=== PATIENT | male | born 1965 | race Caucasian/White ===

== ENCOUNTER 2018-01-04 08:42 | Inpatient (IN) | payer MEDICARE, OTHER ==
[2018-01-04] MEDS: IPRATRPIUM/ALBUTEROL 0.5/2.5MG 3 ML NEBU. NEB ×4 (09:06→10:00)
[2018-01-04 09:09] LABS: ADD MAN DIFF? NO
[2018-01-04 09:11] LABS: BASO % 0 % (0-3); EOS # 0.1 x10^3/uL (0.0-0.7); EOS % 1 % (0-3); HEMOGLOBIN 13.2 g/dL (13.0-17.5); LYMPH # 1.3 x10^3/uL (1.0-4.8); LYMPH % 11 % (24-48); MEAN CORPUSCULAR HEMOGLOBIN 28 pg (25-35); MEAN CORPUSCULAR HGB CONC 32 g/dL (31-37); MEAN CORPUSCULAR VOLUME 89 fL (79-100); MONO # 1.2 x10^3/uL (0.0-1.1); MONO % 11 % (0-9); NEUT # 9.2 x10^3uL (1.8-7.7); NEUT % 78 % (31-73); PLATELET COUNT 311 x10^3/uL (140-400); RED BLOOD COUNT 4.74 x10^6/uL (4.30-5.70); RED CELL DISTRIBUTION WIDTH 17.9 % (11.5-14.5); WHITE BLOOD COUNT 11.9 x10^3/uL (4.0-11.0)
[2018-01-04 09:18] LABS: AMMONIA 38 mcmol/L (11-34)
[2018-01-04 09:19] LABS: BASE EXCESS ABG 15 mmol/L (-3-3); HCO3 ABG 49 mmol/L (21-28); PO2 ABG 84 mmHg (75-108); SAT O2 ABG 94 % (92-99)
[2018-01-04 09:23] LABS: PCO2 ABG 131 mmHg (35-46); PH ABG 7.19 (7.35-7.45)
[2018-01-04 09:25] LABS: LACTIC ACID 0.6 mmol/L (0.4-2.0)
[2018-01-04 09:29] LABS: BLOOD UREA NITROGEN 7 mg/dL (8-26); BUN/CREATININE RATIO 12 (6-20); CALCIUM 9.2 mg/dL (8.5-10.1); CHLORIDE 93 mmol/L (98-107); CREATININE 0.6 mg/dL (0.7-1.3); GFR 140.9; GLUCOSE 106 mg/dL (70-99); SODIUM 139 mmol/L (136-145)
[2018-01-04 09:32] LABS: CARBON DIOXIDE > 45 mmol/L (21-32)
[2018-01-04 09:34] LABS: ALBUMIN 3.3 g/dL (3.4-5.0); ALBUMIN/GLOBULIN RATIO 0.8 (1.0-1.7); ALK PHOS 93 U/L (46-116); ALT (SGPT) 24 U/L (16-63); AST (SGOT) 19 U/L (15-37); TOTAL BILIRUBIN 0.3 mg/dL (0.2-1.0); TOTAL PROTEIN 7.2 g/dL (6.4-8.2)
[2018-01-04 09:34] LABS: TROPONINI < 0.017 ng/mL (0.000-0.055)
[2018-01-04] MEDS: ETOMIDATE 20 MG/10 ML VIAL. IV ×2 (09:34)
[2018-01-04] MEDS: SUCCINYLCHOLINE 200 MG/10 ML VIAL. IV ×2 (09:35)
[2018-01-04] MEDS: IV NORMAL SALINE 1000ML BAG 1,000 ML IV ×4 (09:36→14:22)
[2018-01-04 09:38] LABS: NT-PRO BNP 1987 pg/mL (0-124)
[2018-01-04] MEDS: PROPOFOL 10 MG/ML (20ML) VIAL. IV ×2 (09:45)
[2018-01-04 09:50] LABS: BARBITURATES NEG (NEG); BENZODIAZEPINES NEG (NEG); CANNABINOIDS NEG (NEG); COCAINE NEG (NEG); METHADONE NEG (NEG); OPIATES NEG (NEG); PHENCYCLIDINE NEG (NEG)
[2018-01-04 09:52] LABS: AMPHETAMINE/METHAMPHETAMINE NEG (NEG); ETHANOL, URINE NEG (NEG)
[2018-01-04] MEDS ORDERED: PROPOFOL 50 ML IV ×2 (09:54)
[2018-01-04 09:57] LABS: BILIRUBIN,URINE NEGATIVE (NEG); CLARITY,URINE CLEAR; COLOR,URINE YELLOW; GLUCOSE,URINE NEGATIVE (NEG); NITRITE,URINE NEGATIVE (NEG); PROTEIN,URINE NEGATIVE (NEG-TRACE); UROBILINOGEN,URINE 0.2 mg/dL (0.2 mg/dL)
[2018-01-04 09:58] LABS: BACTERIA,URINE 0 /HPF (0-FEW); RBC,URINE OCC /HPF (0-2)
[2018-01-04 09:59] LABS: WBC,URINE 0 /HPF (0-4)
[2018-01-04] MEDS: ALBUTEROL SULFATE 2.5 MG/3 ML NEBU. NEB ×2 (10:00)
[2018-01-04 10:04] LABS: INFLUENZA A PATIENT NEGATIVE (NEGATIVE); INFLUENZA B PATIENT NEGATIVE (NEGATIVE); OBC FLU VALID
[2018-01-04] MEDS: PROPOFOL 50 ML IV ×2 (10:10)
[2018-01-04] MEDS: methylPREDNISolone SOD SUCC PF 125 MG/2 ML VIAL. IV ×2 (10:18)
[2018-01-04] MEDS: ROCURONIUM 50 MG/5 ML VIAL. IV ×2 (10:19)
[2018-01-04] MEDS: MIDAZOLAM HCL/PF 2 MG/2 ML VIAL. IV ×2 (10:30)
[2018-01-04] MEDS: MIDAZOLAM HCL/PF 5 MG/5 ML VIAL. IV ×2 (10:31)
[2018-01-04] MEDS: IV NORMAL SALINE 500ML BAG 500 ML IV ×2 (10:38)
[2018-01-04] MEDS ORDERED: PROPOFOL 10 MG/ML (100ML) VIAL. IV ×2 (11:10)
[2018-01-04] MEDS ORDERED: PROPOFOL 100 ML IV ×4 (11:10→12:15)
[2018-01-04] MEDS: CHLORHEXIDINE 0.12% 15 ML MOUTHWASH. MM ×4 (12:00→21:57)
[2018-01-04 12:25] LABS: BASE EXCESS ABG 17 mmol/L (-3-3); HCO3 ABG 44 mmol/L (21-28); PH ABG 7.45 (7.35-7.45); PO2 ABG 463 mmHg (75-108); SAT O2 ABG 100 % (92-99)
[2018-01-04 12:57] LABS: PCO2 ABG 65 mmHg (35-46)
[2018-01-04 12:58] LABS: FIO2 ABG 90
[2018-01-04] MEDS: MIDAZOLAM 100MG/100ML PREMIX 100 ML IV ×2 (14:19)
[2018-01-04] MEDS: ENOXAPARIN 40 MG/0.4 ML SYRINGE. SQ ×2 (14:23)
[2018-01-04] MEDS: NOREPINEPHRIN PREMIX 250 ML IV ×2 (15:10)
[2018-01-04] MEDS: CALCIUM CARBONATE 500 MG TAB.CHEW PO ×2 (16:34)
[2018-01-04] MEDS: methylPREDNISolone SOD SUCC PF 40 MG/ML VIAL. IV ×4 (16:53→22:09)
[2018-01-04] MEDS: SCOPOLAMINE 1.5MG PATCH. TD ×2 (21:55)
[2018-01-04] MEDS: ALPRAZolam 0.5 MG TABLET PO ×2 (21:57)
[2018-01-04] MEDS: LACTOBACILLUS RHAMNOSUS GG 1 CAPSULE. PO ×2 (21:57)
[2018-01-04] MEDS: GABAPENTIN 300 MG CAPSULE. PO ×2 (21:57)
[2018-01-04] MEDS: ASCORBIC ACID 500 MG TABLET PO ×2 (21:57)
[2018-01-04] MEDS: FAMOTIDINE 20 MG/2 ML VIAL IVP ×2 (21:57)
[2018-01-04] MEDS: FERROUS SULFATE 325 MG TABLET. PO ×2 (21:58)
[2018-01-04] MEDS: OLANZapine 5 MG TABLET PO ×2 (22:09)
[2018-01-05] MEDS: MIDAZOLAM 100MG/100ML PREMIX 100 ML IV ×2 (01:07)
[2018-01-05 05:20] LABS: MRSA BY PCR Negative (Negative)
[2018-01-05] MEDS: CALCIUM CARBONATE 500 MG TAB.CHEW PO ×8 (06:00→18:09)
[2018-01-05] MEDS: methylPREDNISolone SOD SUCC PF 40 MG/ML VIAL. IV ×6 (06:37→21:59)
[2018-01-05 06:39] LABS: HEMATOCRIT 32.8 % (39.0-53.0); HEMOGLOBIN 10.5 g/dL (13.0-17.5); MEAN CORPUSCULAR HEMOGLOBIN 28 pg (25-35); MEAN CORPUSCULAR HGB CONC 32 g/dL (31-37); MEAN CORPUSCULAR VOLUME 87 fL (79-100); PLATELET COUNT 223 x10^3/uL (140-400); RED BLOOD COUNT 3.76 x10^6/uL (4.30-5.70); RED CELL DISTRIBUTION WIDTH 18.7 % (11.5-14.5); WHITE BLOOD COUNT 9.4 x10^3/uL (4.0-11.0)
[2018-01-05 07:56] LABS: BASE EXCESS ABG 11 mmol/L (-3-3); HCO3 ABG 37 mmol/L (21-28); PCO2 ABG 57 mmHg (35-46); PH ABG 7.43 (7.35-7.45); PO2 ABG 84 mmHg (75-108); SAT O2 ABG 96 % (92-99)
[2018-01-05 08:26] LABS: FIO2 ABG 40
[2018-01-05] MEDS: CETIRIZINE HCL 10 MG TABLET. PO ×2 (08:41)
[2018-01-05] MEDS: LACTOBACILLUS RHAMNOSUS GG 1 CAPSULE. PO ×4 (08:41→21:09)
[2018-01-05] MEDS: POLYETHYLENE GLYCOL 3350 17 GM PACKET. PO ×2 (08:43)
[2018-01-05] MEDS: GABAPENTIN 300 MG CAPSULE. PO ×6 (08:43→21:10)
[2018-01-05] MEDS: PARoxetine 20 MG TABLET PO ×2 (08:43)
[2018-01-05] MEDS: CHLORHEXIDINE 0.12% 15 ML MOUTHWASH. MM ×4 (08:44→21:10)
[2018-01-05] MEDS: PANTOPRAZOLE IV PUSH 40 MG VIAL. IVP ×2 (08:44)
[2018-01-05 08:53] LABS: ALBUMIN 2.3 g/dL (3.4-5.0); ALBUMIN/GLOBULIN RATIO 0.8 (1.0-1.7); ALK PHOS 67 U/L (46-116); ALT (SGPT) 15 U/L (16-63); ANION GAP 3 (6-14); AST (SGOT) 9 U/L (15-37); BLOOD UREA NITROGEN 17 mg/dL (8-26); BUN/CREATININE RATIO 24 (6-20); CALCIUM 8.5 mg/dL (8.5-10.1); CARBON DIOXIDE 37 mmol/L (21-32); CHLORIDE 100 mmol/L (98-107); CREATININE 0.7 mg/dL (0.7-1.3); GLUCOSE 119 mg/dL (70-99); POTASSIUM 4.9 mmol/L (3.5-5.1); SODIUM 140 mmol/L (136-145); TOTAL BILIRUBIN 0.5 mg/dL (0.2-1.0); TOTAL PROTEIN 5.1 g/dL (6.4-8.2)
[2018-01-05] MEDS: IPRATROPIUM BROMIDE 0.5 MG/2.5 ML NEBU. NEB ×10 (09:00→20:05)
[2018-01-05] MEDS: IV NORMAL SALINE 1000ML BAG 1,000 ML IV ×4 (12:06→21:56)
[2018-01-05] MEDS: ENOXAPARIN 40 MG/0.4 ML SYRINGE. SQ ×2 (12:06)
[2018-01-05] MEDS: ALPRAZolam 0.5 MG TABLET PO ×2 (21:09)
[2018-01-05] MEDS: ASCORBIC ACID 500 MG TABLET PO ×2 (21:09)
[2018-01-05] MEDS: ACETAMINOPHEN 325 MG TABLET. PO ×2 (21:10)
[2018-01-05] MEDS: OLANZapine 5 MG TABLET PO ×2 (21:10)
[2018-01-05] MEDS: FAMOTIDINE 20 MG/2 ML VIAL IVP ×2 (21:10)
[2018-01-05] MEDS: FERROUS SULFATE 325 MG TABLET. PO ×2 (21:10)
[2018-01-05 21:36] LABS: BASE EXCESS ABG 10 mmol/L (-3-3); BODY TEMP ABG 99.3 DEG; CORRECTED PCO2 ABG 85 mmHg; CORRECTED PH ABG 7.28; CORRECTED PO2 ABG 91 mmHg; HCO3 ABG 39 mmol/L (21-28); PH ABG 7.29 (7.35-7.45); PO2 ABG 89 mmHg (75-108); SAT O2 ABG 95 % (92-99)
[2018-01-05 21:39] LABS: PCO2 ABG 83 mmHg (35-46)
[2018-01-06] MEDS: LORazepam 1 MG TABLET PO ×2 (01:41)
[2018-01-06] MEDS: ALPRAZolam 0.5 MG TABLET PO ×2 (01:41)
[2018-01-06] MEDS ORDERED: IV NORMAL SALINE 1000ML BAG 1,000 ML IV ×4 (03:30→03:45)
[2018-01-06] MEDS: CALCIUM CARBONATE 500 MG TAB.CHEW PO ×8 (05:47→15:37)
[2018-01-06] MEDS: methylPREDNISolone SOD SUCC PF 40 MG/ML VIAL. IV ×6 (06:28→22:00)
[2018-01-06 06:36] LABS: HEMATOCRIT 34.3 % (39.0-53.0); HEMOGLOBIN 10.9 g/dL (13.0-17.5); MEAN CORPUSCULAR HEMOGLOBIN 28 pg (25-35); MEAN CORPUSCULAR HGB CONC 32 g/dL (31-37); MEAN CORPUSCULAR VOLUME 88 fL (79-100); PLATELET COUNT 237 x10^3/uL (140-400); RED BLOOD COUNT 3.91 x10^6/uL (4.30-5.70); RED CELL DISTRIBUTION WIDTH 18.7 % (11.5-14.5)
[2018-01-06 06:40] LABS: ANION GAP 3 (6-14); BLOOD UREA NITROGEN 20 mg/dL (8-26); CALCIUM 8.5 mg/dL (8.5-10.1); CARBON DIOXIDE 34 mmol/L (21-32); CHLORIDE 101 mmol/L (98-107); CREATININE 0.7 mg/dL (0.7-1.3); GLUCOSE 113 mg/dL (70-99); MAGNESIUM 1.7 mg/dL (1.8-2.4); POTASSIUM 4.2 mmol/L (3.5-5.1); SODIUM 138 mmol/L (136-145)
[2018-01-06] MEDS: PARoxetine 20 MG TABLET PO ×2 (08:02)
[2018-01-06] MEDS: GABAPENTIN 300 MG CAPSULE. PO ×6 (08:02→20:40)
[2018-01-06] MEDS: POLYETHYLENE GLYCOL 3350 17 GM PACKET. PO ×2 (08:02)
[2018-01-06] MEDS: PANTOPRAZOLE IV PUSH 40 MG VIAL. IVP ×2 (08:02)
[2018-01-06] MEDS: CETIRIZINE HCL 10 MG TABLET. PO ×2 (08:02)
[2018-01-06] MEDS: LACTOBACILLUS RHAMNOSUS GG 1 CAPSULE. PO ×2 (08:02)
[2018-01-06] MEDS: IV NORMAL SALINE 1000ML BAG 1,000 ML IV ×2 (08:02)
[2018-01-06] MEDS: CHLORHEXIDINE 0.12% 15 ML MOUTHWASH. MM ×4 (08:03→15:37)
[2018-01-06] MEDS: IPRATROPIUM BROMIDE 0.5 MG/2.5 ML NEBU. NEB ×8 (08:26→19:57)
[2018-01-06 08:33] LABS: BASE EXCESS ABG 8 mmol/L (-3-3); HCO3 ABG 33 mmol/L (21-28); PCO2 ABG 50 mmHg (35-46); PH ABG 7.44 (7.35-7.45); PO2 ABG 95 mmHg (75-108); SAT O2 ABG 97 % (92-99)
[2018-01-06 11:22] LABS: BASE EXCESS ABG 4 mmol/L (-3-3); HCO3 ABG 30 mmol/L (21-28); PCO2 ABG 51 mmHg (35-46); PH ABG 7.39 (7.35-7.45); PO2 ABG 76 mmHg (75-108); SAT O2 ABG 94 % (92-99)
[2018-01-06 11:26] LABS: FIO2 ABG 40
[2018-01-06 11:27] LABS: FIO2 ABG 40
[2018-01-06] MEDS: ENOXAPARIN 40 MG/0.4 ML SYRINGE. SQ ×2 (13:00)
[2018-01-06 18:52] LABS: POTASSIUM 3.7 mmol/L (3.5-5.1)
[2018-01-06] MEDS: FERROUS SULFATE 325 MG TABLET. PO ×2 (20:40)
[2018-01-06] MEDS: ASCORBIC ACID 500 MG TABLET PO ×2 (20:40)
[2018-01-06] MEDS: OLANZapine 5 MG TABLET PO ×2 (20:40)
[2018-01-07] MEDS: CALCIUM CARBONATE 500 MG TAB.CHEW PO ×10 (00:11→23:06)
[2018-01-07 06:00] LABS: ANION GAP 0 (6-14); BLOOD UREA NITROGEN 12 mg/dL (8-26); CALCIUM 8.7 mg/dL (8.5-10.1); CARBON DIOXIDE 38 mmol/L (21-32); CHLORIDE 102 mmol/L (98-107); CREATININE 0.6 mg/dL (0.7-1.3); GFR 140.9; GLUCOSE 118 mg/dL (70-99); POTASSIUM 3.9 mmol/L (3.5-5.1); SODIUM 140 mmol/L (136-145)
[2018-01-07] MEDS: methylPREDNISolone SOD SUCC PF 40 MG/ML VIAL. IV ×4 (06:14→18:32)
[2018-01-07] MEDS: POLYETHYLENE GLYCOL 3350 17 GM PACKET. PO ×2 (07:59)
[2018-01-07] MEDS: CETIRIZINE HCL 10 MG TABLET. PO ×2 (07:59)
[2018-01-07] MEDS: PARoxetine 20 MG TABLET PO ×2 (07:59)
[2018-01-07] MEDS: LANSOPRAZOLE 30 MG TAB.RAP.DR FT ×2 (07:59)
[2018-01-07] MEDS: GABAPENTIN 300 MG CAPSULE. PO ×6 (07:59→20:35)
[2018-01-07] MEDS: SCOPOLAMINE 1.5MG PATCH. TD ×2 (08:00)
[2018-01-07] MEDS: hydrALAZINE 20 MG/ML VIAL. IVP ×2 (08:00)
[2018-01-07] MEDS: CHLORHEXIDINE 0.12% 15 ML MOUTHWASH. MM ×2 (09:00)
[2018-01-07] MEDS: IPRATROPIUM BROMIDE 0.5 MG/2.5 ML NEBU. NEB ×8 (09:08→20:09)
[2018-01-07] MEDS: ENOXAPARIN 40 MG/0.4 ML SYRINGE. SQ ×2 (12:49)
[2018-01-07] MEDS: OLANZapine 5 MG TABLET PO ×2 (20:35)
[2018-01-07] MEDS: HYDROcodone/APAP 5/325MG 1 TAB TABLET PO ×2 (20:35)
[2018-01-07] MEDS: ASCORBIC ACID 500 MG TABLET PO ×2 (20:35)
[2018-01-07] MEDS: FERROUS SULFATE 325 MG TABLET. PO ×2 (20:35)
[2018-01-08] MEDS: CALCIUM CARBONATE 500 MG TAB.CHEW PO ×6 (05:11→16:40)
[2018-01-08] MEDS: methylPREDNISolone SOD SUCC PF 40 MG/ML VIAL. IV ×2 (05:12)
[2018-01-08] MEDS: HYDROcodone/APAP 5/325MG 1 TAB TABLET PO ×4 (05:12→20:04)
[2018-01-08] MEDS: IPRATROPIUM BROMIDE 0.5 MG/2.5 ML NEBU. NEB ×8 (08:01→19:50)
[2018-01-08] MEDS: GABAPENTIN 300 MG CAPSULE. PO ×6 (08:10→20:04)
[2018-01-08] MEDS: PARoxetine 20 MG TABLET PO ×2 (08:10)
[2018-01-08] MEDS: LANSOPRAZOLE 30 MG TAB.RAP.DR FT ×2 (08:10)
[2018-01-08] MEDS: POLYETHYLENE GLYCOL 3350 17 GM PACKET. PO ×2 (08:11)
[2018-01-08] MEDS: CETIRIZINE HCL 10 MG TABLET. PO ×2 (08:11)
[2018-01-08] MEDS: ENOXAPARIN 40 MG/0.4 ML SYRINGE. SQ ×2 (13:00)
[2018-01-08] MEDS: OLANZapine 5 MG TABLET PO ×2 (20:03)
[2018-01-08] MEDS: FERROUS SULFATE 325 MG TABLET. PO ×2 (20:03)
[2018-01-08] MEDS: ASCORBIC ACID 500 MG TABLET PO ×2 (20:03)
[2018-01-09] MEDS: CALCIUM CARBONATE 500 MG TAB.CHEW PO ×6 (05:50→12:59)
[2018-01-09] MEDS: IPRATROPIUM BROMIDE 0.5 MG/2.5 ML NEBU. NEB ×4 (08:05→11:25)
[2018-01-09] MEDS: CETIRIZINE HCL 10 MG TABLET. PO ×2 (09:13)
[2018-01-09] MEDS: PARoxetine 20 MG TABLET PO ×2 (09:13)
[2018-01-09] MEDS: predniSONE 10 MG TABLET PO ×2 (09:13)
[2018-01-09] MEDS: LANSOPRAZOLE 30 MG TAB.RAP.DR FT ×2 (09:13)
[2018-01-09] MEDS: POLYETHYLENE GLYCOL 3350 17 GM PACKET. PO ×2 (09:13)
[2018-01-09] MEDS: GABAPENTIN 300 MG CAPSULE. PO ×4 (09:13→14:34)
== END 2018-01-09 13:04 | disposition home or self-care (01) | DRG 208 ==
LOC: 6 SOUTH 01-07 13:49 → ER 08:42 → 1 WEST ICU 09:43
PROC: 5A1945Z Respiratory Ventilation, 24-96 Consecutive Hours (ICD-10-PCS; principal; 2018-01-04)
PROC: 0BH17EZ Insertion of Endotracheal Airway into Trachea, Via Natural or Artificial Opening (ICD-10-PCS; 2018-01-04)
DX: J96.21 Acute and chronic respiratory failure with hypoxia (principal); G92 Toxic encephalopathy; J44.1 Chronic obstructive pulmonary disease with (acute) exacerbation; E87.2 Acidosis; J96.22 Acute and chronic respiratory failure with hypercapnia; F14.10 Cocaine abuse, uncomplicated; F17.200 Nicotine dependence, unspecified, uncomplicated; F20.9 Schizophrenia, unspecified; G89.4 Chronic pain syndrome; K21.9 Gastro-esophageal reflux disease without esophagitis; F32.9 Major depressive disorder, single episode, unspecified; Z51.5 Encounter for palliative care; Z90.49 Acquired absence of other specified parts of digestive tract; F12.10 Cannabis abuse, uncomplicated; Z87.01 Personal history of pneumonia (recurrent); Z88.8 Allergy status to other drugs, medicaments and biological substances; Z74.01 Bed confinement status
CPT/HCPCS: 31500; 36415; 36600; 51702; 70450; 71045; 80048; 80053; 80307; 81001; 82140; 82805; 83605; 83735; 83880; 84132; 84484; 85025; 85027; 87040; 87641; 87804; 87804-59; 93005; 94002; 94003; 94640; 94660; 94760; 96374; 96375; 97116-GP; 97162-GP; 97166-GO; 99291-25; C9113; J0330; J0360; J1650; J2250; J2704; J2920; J2930; J3010; J7030; J7040; J7512; J7620; J7644; S0028